=== PATIENT | female | born 1990 | race Caucasian/White ===

== ENCOUNTER 2018-01-19 20:29 | Emergency (ER) | payer BC ==
[2018-01-19 21:55] VITALS: RESP 20; TEMP 98; O2SAT 98
[2018-01-19] MEDS ORDERED: SODIUM CHLORIDE 0.9% 1000ML 1,000 ML IV ONE (22:10)
[2018-01-19 23:19] VITALS: BP 117/74; PULSE 83
[2018-01-19 23:26] LABS: APPEARANCE,URINE Clear; BILIRUBIN,URINE NEGATIVE (NEGATIVE); COLOR,URINE Yellow; GLUCOSE, URINE (UA) NEGATIVE (NEGATIVE); KETONES,URINE NEGATIVE (NEGATIVE); LEUKOCYTE ESTERASE ,URINE NEGATIVE (NEGATIVE); NITRATE,URINE NEGATIVE (NEGATIVE); OCCULT BLOOD,URINE NEGATIVE (NEG-TRACE); UROBILINOGEN,URINE 0.2 (0.2-1.0 EU)
[2018-01-19 23:36] LABS: BACTERIA NEGATIVE (< 1+); CRYSTALS NEGATIVE (0-3 AVE/HPF); RBC,URINE NEG (0-3AV/HPF); WBC,URINE NEG (0-5AV/HPF)
== END 2018-01-19 23:55 | disposition home or self-care (01) ==
LOC: ED 20:29
DX: O26.899 Other specified pregnancy related conditions, unspecified trimester (principal); R10.9 Unspecified abdominal pain; Z3A.00 Weeks of gestation of pregnancy not specified
CPT/HCPCS: 59025; 81001; 96365; 99283

== ENCOUNTER 2018-06-11 02:35 | Inpatient (IN) | payer BC ==
[2018-06-11] MEDS ORDERED: METHYLERGONOVINE MALEATE 0.2 MG/ML SOL IM PRN (02:56)
[2018-06-11] MEDS ORDERED: FENTANYL 100MCG/2ML SOL IV PRN (02:56)
[2018-06-11] MEDS ORDERED: CARBOPROST 250 MCG/ML SOL IM PRN (02:56)
[2018-06-11] MEDS ORDERED: SODIUM CHLORIDE 0.9% FLUSH 10 ML SOL IV PRN (02:56)
[2018-06-11] MEDS ORDERED: LACTATED RINGERS 1,000 ML IV PRN (02:56)
[2018-06-11] MEDS ORDERED: OXYTOCIN 10000 MU/ML SOL IM PRN (02:56)
[2018-06-11] MEDS ORDERED: MEPIVACAINE HCL 1% MPF 30 ML/VIAL SOL INFIL PRN (02:56)
[2018-06-11] MEDS: SODIUM CHLORIDE 0.9% FLUSH 10 ML SOL IV SCH ×3 (03:10→20:56)
[2018-06-11 03:40] LABS: BASOPHILS % (AUTO) 0 % (0-3); EOSINOPHILS % (AUTO) 1 % (0-9); HEMATOCRIT 37 % (35-47); HEMOGLOBIN 12.5 gm/dl (12.0-15.5); LYMPHOCYTES % (AUTO) 19.5 % (10-50); MEAN CORPUSCULAR HEMOGLOBIN 29.9 pg (27.0-32.0); MEAN CORPUSCULAR HGB CONC 33.5 gm/dl (32.0-36.0); MEAN CORPUSCULAR VOLUME 89 fL (81-99); MONOCYTES % (AUTO) 7.1 % (0-12); NEUTROPHILS % (AUTO) 72.4 % (37-80)
[2018-06-11] MEDS ORDERED: EPHEDRINE SULFATE 50 MG/ML SOL IV PRN (04:12)
[2018-06-11] MEDS ORDERED: NALBUPHINE HCL 20 MG/ML SOL IV PRN (04:12)
[2018-06-11] MEDS ORDERED: NALOXONE HYDROCHLORIDE 0.4 MG/ML SOL IV PRN (04:12)
[2018-06-11] MEDS ORDERED: DIPHENHYDRAMINE 50 MG/ML SOL IV PRN (04:12)
[2018-06-11] MEDS ORDERED: LABETALOL HYDROCHLORIDE 5 MG/ML SOL IV ONE (04:22)
[2018-06-11] MEDS: LACTATED RINGERS 1,000 ML IV SCH ×4 (04:51→13:20)
[2018-06-11] MEDS ORDERED: FENTANYL 250 MCG/ 5ML SOL ONE (04:56)
[2018-06-11] MEDS ORDERED: LIDOCAINE HCL 2% MPF 10 ML SOL ONE (04:56)
[2018-06-11 06:51] LABS: APPEARANCE,URINE Clear; BILIRUBIN,URINE NEGATIVE (NEGATIVE); COLOR,URINE Yellow; GLUCOSE, URINE (UA) NEGATIVE (NEGATIVE); KETONES,URINE NEGATIVE (NEGATIVE); LEUKOCYTE ESTERASE ,URINE NEGATIVE (NEGATIVE); NITRATE,URINE NEGATIVE (NEGATIVE); OCCULT BLOOD,URINE NEGATIVE (NEG-TRACE); PH,URINE 5.5; UROBILINOGEN,URINE 0.2 (0.2-1.0 EU)
[2018-06-11 06:52] LABS: RBC,URINE 0-2 (0-3AV/HPF)
[2018-06-11 06:53] LABS: ALBUMIN 2.4 gm/dl (3.4-5.0); BILIRUBIN,TOTAL 0.2 mg/dl (0.2-1.0); CALCIUM 8.3 mg/dl (8.5-10.1); CARBON DIOXIDE 20.6 mEq/L (21-32); CREATININE 0.62 mg/dl (0.60-1.00); POTASSIUM 4.4 mMol/L (3.5-5.1); TOTAL PROTEIN 5.9 gm/dl (6.4-8.2)
[2018-06-11 06:53] LABS: BACTERIA 1+ (< 1+); CRYSTALS NEGATIVE (0-3 AVE/HPF)
[2018-06-11] MEDS ORDERED: BISACODYL 10 MG SUP PR PRN (14:51)
[2018-06-11] MEDS ORDERED: TEMAZEPAM 15MG 15 MG CAP PO PRN (14:51)
[2018-06-11] MEDS ORDERED: FLEET ENEMA PR PRN (14:51)
[2018-06-11] MEDS ORDERED: METHYLERGONOVINE MALEATE 0.2 MG TAB PO PRN (14:51)
[2018-06-11] MEDS ORDERED: BENZOCAINE/MENTHOL 1 SPR TOP PRN (14:51)
[2018-06-11] MEDS: IBUPROFEN 600 MG TAB PO PRN ×2 (15:59→23:59)
[2018-06-11] MEDS: DOCUSATE SODIUM 100 MG SGL PO SCH (20:56)
[2018-06-11] MEDS: APAP/HYDROCODONE 1 EACH TABLET PO PRN (20:56)
[2018-06-11] MEDS: LEVOTHYROXINE SODIUM 50 MCG TAB PO SCH (21:48)
[2018-06-12] MEDS: APAP/HYDROCODONE 1 EACH TABLET PO PRN ×3 (04:13→18:55)
[2018-06-12] MEDS: SODIUM CHLORIDE 0.9% FLUSH 10 ML SOL IV SCH ×2 (04:16→15:14)
[2018-06-12] MEDS ORDERED: ESCITALOPRAM 10 MG TAB ONE (08:24)
[2018-06-12] MEDS: WITCH HAZEL 1 EA PAD TOP PRN (08:33)
[2018-06-12] MEDS: DOCUSATE SODIUM 100 MG SGL PO SCH ×2 (08:33→20:31)
[2018-06-12] MEDS: FOLIC ACID 1 MG TAB PO SCH (08:33)
[2018-06-12] MEDS: ESCITALOPRAM 10 MG TAB PO SCH (08:33)
[2018-06-12] MEDS: MULTIVITAMIN2 1 EA TAB PO SCH (08:33)
[2018-06-12] MEDS ORDERED: Non-Formulary Medication MISC (Bupropion Xl 150 Mg 150 MG) PO SCH (09:00)
[2018-06-12] MEDS: IBUPROFEN 600 MG TAB PO PRN ×3 (09:07→20:30)
[2018-06-12] MEDS: BUPROPION XL 150 MG T24 PO SCH (16:23)
[2018-06-12 17:48] VITALS: RESP 20
[2018-06-12 17:50] VITALS: O2SAT 98
[2018-06-12] MEDS: LEVOTHYROXINE SODIUM 50 MCG TAB PO SCH (20:30)
[2018-06-13] MEDS: APAP/HYDROCODONE 1 EACH TABLET PO PRN ×2 (01:13→08:40)
[2018-06-13] MEDS: IBUPROFEN 600 MG TAB PO PRN (06:00)
[2018-06-13 08:18] VITALS: BP 121/81; PULSE 88; TEMP 98.1
[2018-06-13] MEDS ORDERED: ESCITALOPRAM 10 MG TAB ONE (08:26)
[2018-06-13] MEDS: DOCUSATE SODIUM 100 MG SGL PO SCH (08:39)
[2018-06-13] MEDS: FOLIC ACID 1 MG TAB PO SCH (08:39)
[2018-06-13] MEDS: ESCITALOPRAM 10 MG TAB PO SCH (08:39)
[2018-06-13] MEDS: MULTIVITAMIN2 1 EA TAB PO SCH (08:40)
[2018-06-13] MEDS: BUPROPION XL 150 MG T24 PO SCH (08:40)
[2018-06-13] MEDS: WITCH HAZEL 1 EA PAD TOP PRN (08:41)
[2018-06-13] MEDS ORDERED: FERROUS GLUCONATE 324 MG TABLET PO SCH (09:00)
== END 2018-06-13 12:45 | disposition home or self-care (01) | DRG 560 ==
LOC: OBSVTOIN 02:35 → OB 02:35
PROVIDERS: ADMIT Family Medicine; ATTEND Family Medicine
PROC: 10D07Z6 Extraction of Products of Conception, Vacuum, Via Natural or Artificial Opening (ICD-10-PCS; principal; 2018-06-11)
PROC: 10907ZC Drainage of Amniotic Fluid, Therapeutic from Products of Conception, Via Natural or Artificial Opening (ICD-10-PCS; 2018-06-11)
PROC: 0KQM0ZZ Repair Perineum Muscle, Open Approach (ICD-10-PCS; 2018-06-11)
DX: O80 Encounter for full-term uncomplicated delivery (principal); Z37.0 Single live birth; Z3A.38 38 weeks gestation of pregnancy
CPT/HCPCS: 36415; 59025; 80053; 81001; 85018; 85025; 94762; J0670; J2590; J3010; A9270-GY; J3490